=== PATIENT | female | born 1945 | race Caucasian/White ===

== ENCOUNTER → 2018-02-24 | Outpatient (CLI) | payer MEDICARE, BC ==
[~2018-02-24] MED LIST: 0.9 % SODIUM CHLORIDE 10 ML VIAL ONE; IOHEXOL 300 MG/ML 50 ML VIAL. ONE; LIDOCAINE 1% PF 30 ML VIAL. ONE; methylPREDNISolone ACETATE 80 MG/ML VIAL. ONE
== END | disposition home or self-care (01) ==
LOC: SURG 13:43
PROVIDERS: ATTEND Anesthesiology Pain Medicine
DX: M47.26 Other spondylosis with radiculopathy, lumbar region (principal); I10 Essential (primary) hypertension; E78.00 Pure hypercholesterolemia, unspecified; E03.9 Hypothyroidism, unspecified; Z90.49 Acquired absence of other specified parts of digestive tract; Z98.1 Arthrodesis status; F17.210 Nicotine dependence, cigarettes, uncomplicated; M19.90 Unspecified osteoarthritis, unspecified site; Z98.890 Other specified postprocedural states; Z79.82 Long term (current) use of aspirin; Z79.899 Other long term (current) drug therapy
CPT/HCPCS: 62323; J1040; J2001; Q9967

== ENCOUNTER 2020-11-28 21:13 | Emergency (ER) | payer MEDICARE, BC ==
[~2020-11-28] VITALS: Ht 157.5 cm; Wt 59.1 kg
[2020-11-28] MEDS ORDERED: IV NORMAL SALINE 1,000ML 1,000 ML IV ONE (21:45)
--- NOTE | 2020-11-28 22:12 | PHYS DOC ---
Past History Past Medical History: Asthma, Diverticulitis, High Cholesterol, Hypertension, UTI, Other Additional Past Surgical Histo: Double Mastectomy Alcohol Use: None General Adult EDM: Chief Complaint: CONSTIPATION HPI: HPI: 75-year-old female presents with concern for constipation. The patient had breast augmentation surgery and a tummy tuck yesterday. The surgery lasted over 3 hours. She has not had a bowel movement yesterday or today. She is taking magnesium citrate and 2 Fleet enemas. She is very concerned about this. She does not believe that she has had flatus. Her last bowel movement was the day before surgery. The patient is also had an episode of vomiting in the ED which was coffee-ground color. Patient has no history of gastric ulcers. She did take some ibuprofen today, but has not been taking ibuprofen or other NSAIDs daily. She is on oxycodone per the surgeon who told her not to take any more ibuprofen like she took today. The patient does not like narcotic pain medication. She has soreness and pain from the surgery, but no significant additional pain. Denies fever or chills. Review of Systems: Review of Systems: Constitutional: Denies fever or chills Eyes: Denies change in visual acuity HENT: Denies nasal congestion or sore throat Respiratory: Denies cough or shortness of breath Cardiovascular: Denies chest pain or edema GI: Constipation, vomiting : Denies dysuria Musculoskeletal: Denies back pain or joint pain Integument: Denies rash Neurologic: Denies headache, focal weakness or sensory changes Endocrine: Denies polyuria or polydipsia Lymphatic: Denies swollen glands Psychiatric: Denies depression or anxiety Current Medications: Current Meds: Current Medications Medications (Trade) Dose Ordered Sig/Monse Start Time Stop Time Status Last Admin Dose Admin Sodium Chloride 1,000 ml @ 1,000 mls/hr 1X ONCE 11/28/20 21:45 11/28/20 22:44 11/28/20 22:05 1,000 MLS/HR Allergies: Allergies: Allergies Coded Allergies Type Severity Reaction Last Updated Verified Penicillins Allergy Unknown 11/28/20 Yes Physical Exam: PE: Constitutional: Well developed, well nourished, no acute distress, non-toxic appearance. [] HENT: Normocephalic, atraumatic, bilateral external ears normal, oropharynx moist, no oral exudates, nose normal. [] Eyes: PERRLA, EOMI, conjunctiva normal, no discharge. [] Neck: Normal range of motion, no tenderness, supple, no stridor. [] Cardiovascular: Heart rate regular rhythm, no murmur [] Lungs & Thorax: Bilateral breath sounds clear to auscultation [] Abdomen: Bowel sounds decreased, wearing abdominal binder, generalized tenderness, no masses, no pulsatile masses. [] Skin: Warm, dry, no erythema, no rash. [] Back: No tenderness, no CVA tenderness. [] Extremities: No tenderness, no cyanosis, no clubbing, ROM intact, no edema. [] Neurologic: Alert and oriented X 3, normal motor function, normal sensory function, no focal deficits noted. [] Psychologic: Affect normal, judgement normal, mood normal. [] Current Patient Data: Vital Signs: Vital Signs Date Time Temp Pulse Resp B/P (MAP) Pulse Ox O2 Delivery O2 Flow Rate FiO2 11/28/20 21:20 98.2 96 18 148/91 (110) 98 Room Air EKG: EKG: [] Radiology/Procedures: Radiology/Procedures: [] Impressions: EXAM: Supine AP view of the abdomen DATE: 11/28/2020 9:31 PM INDICATION: Reason: CONSTIPATION.HX COLON RESECTION,DIVERTICULITIS.BRST SX YESTERDAY / Spl. Instructions: / History: COMPARISON: No Prior FINDINGS: No abnormal small or large bowel dilatation. Moderate to large volume colonic stool content. No abnormal soft tissue mass effect. No suspicious calcifications are seen. Evaluation for free intraperitoneal gas is limited on this supine exam. Posterolateral lumbar spine fusion L4-S1 IMPRESSION: 1. No evidence for bowel obstruction. 2. Moderate to large volume colonic stool content can be correlated for possible constipation. Electronically signed by: Gaurav Rubio MD (11/28/2020 10:11 PM) [facility] [place] DICTATED AND SIGNED BY: GAURAV RUBIO MD DATE: 11/28/202209 CC: MAYANK ENCARNACION DO; WES MCCLENDON MD ~MTH0 0 Heart Score: C/O Chest Pain: N/A Risk Factors: Risk Factors: DM, Current or recent (<one month) smoker, HTN, HLP, family history of CAD, obesity. Risk Scores: Score 0 - 3: 2.5% MACE over next 6 weeks - Discharge Home Score 4 - 6: 20.3% MACE over next 6 weeks - Admit for Clinical Observation Score 7 - 10: 72.7% MACE over next 6 weeks - Early Invasive Strategies Course & Med Decision Making: Course & Med Decision Making Pertinent Labs and Imaging studies reviewed. (See chart for details) The patient's labs are unremarkable. Her KUB does show constipation but no evidence of obstruction. I will perform a digital rectal exam to evaluate for fecal impaction. The patient did not have any stool in the rectum. We did a milk of molasses enema which did result in some stool evacuation. The patient feels like she is a bit better and would like to go home. I believe this is reasonable. She is stable for discharge at this time. [] Dragon Disclaimer: Dragon Disclaimer: This electronic medical record was generated, in whole or in part, using a voice recognition dictation system. Departure Departure: Impression: Primary Impression: Constipation due to opioid therapy Disposition: HOME / SELF CARE / HOMELESS Condition: STABLE Referrals: WES MCCLENDON MD (PCP) Patient Instructions: Constipation, Adult, [id number] MAYANK ENCARNACION DO Nov 28, 2020 22:12
[2020-11-28 22:13] LABS: BASO % 0 % (0-3); EOS % 0 % (0-3); HEMATOCRIT 38.1 % (36.0-47.0); LYMPH # 2.2 x10^3/uL (1.0-4.8); LYMPH % 20 % (24-48); MEAN CORPUSCULAR HEMOGLOBIN 32 pg (25-35); MEAN CORPUSCULAR HGB CONC 34 g/dL (31-37); MEAN CORPUSCULAR VOLUME 92 fL (79-100); MONO # 0.8 x10^3/uL (0.0-1.1); MONO % 7 % (0-9); NEUT % 72 % (31-73); PLATELET COUNT 359 x10^3/uL (140-400); RED BLOOD COUNT 4.14 x10^6/uL (3.50-5.40); RED CELL DISTRIBUTION WIDTH 13.5 % (11.5-14.5)
--- NOTE | 2020-11-28 22:13 | RAD ---
EXAM: Supine AP view of the abdomen DATE: 11/28/2020 9:31 PM INDICATION: Reason: CONSTIPATION.HX COLON RESECTION,DIVERTICULITIS.BRST SX YESTERDAY / Spl. Instructi ons: / History: COMPARISON: No Prior FINDINGS: No abnormal small or large bowel dilatation. Moderate to large volume colonic stool content. No abn ormal soft tissue mass effect. No suspicious calcifications are seen. Evaluation for free intraperi toneal gas is limited on this supine exam. Posterolateral lumbar spine fusion L4-S1 IMPRESSION: 1. No evidence for bowel obstruction. 2. Moderate to large volume colonic stool content can be correlated for possible constipation. Electronically signed by: Gaurav Rubio MD (11/28/2020 10:11 PM) [facility]
[2020-11-28] MEDS ORDERED: PANTOPRAZOLE IV 40 MG VIAL. IVP ONE (22:15)
[2020-11-28 22:20] LABS: CALCIUM 9.1 mg/dL (8.5-10.1); CREATININE 0.8 mg/dL (0.6-1.0); GFR 69.7; POTASSIUM 3.5 mmol/L (3.5-5.1)
[2020-11-28 22:27] LABS: ALBUMIN 3.7 g/dL (3.4-5.0); ALBUMIN/GLOBULIN RATIO 1.1 (1.0-1.7); TOTAL BILIRUBIN 0.6 mg/dL (0.2-1.0); TOTAL PROTEIN 7.1 g/dL (6.4-8.2)
[2020-11-28] MEDS ORDERED: SODIUM PHOSPHATES 19/7GM 133 ML ENEMA. ONE (23:14)
[2020-11-29] MEDS ORDERED: MAGNESIUM CITRATE 296 ML SOLUTION. PO ONE (00:30)
[2020-11-29 01:15] VITALS: BP 156/90
== END 2020-11-29 01:17 | disposition home or self-care (01) ==
LOC: ER 21:13
DX: K59.03 Drug induced constipation (principal); T40.0X5A Adverse effect of opium, initial encounter; Z88.0 Allergy status to penicillin; Y92.89 Other specified places as the place of occurrence of the external cause
CPT/HCPCS: 36415; 74018; 80053; 85025; 96361; 96374; 99285; C9113; J7030